=== PATIENT | male | born 1965 | race Hispanic/Latino ===

== ENCOUNTER 2023-05-13 16:23 | Inpatient (IN) | payer OTHER ==
[~2023-05-13 16:23] MED LIST: Iopamidol-370 76% 500 ML MDV (1 ML CHARGE) ONE
[2023-05-13 16:51] LABS: #Eosinphils 0.1 thou/uL (0.0-0.7); #Monocytes 0.5 thou/uL (0.11-0.59); #Neutrophils 5.8 thou/uL (1.40-6.50); %Basophils 0.3 % (0.0-1.0); %Eosinophils 1.1 % (0.0-10.0); %Monocytes 6.5 % (0.0-10.0); %Neutrophils 72.5 % (42.0-75.0); Hematocrit 49.7 % (42.0-52.0); Hemoglobin 16.9 g/dL (14.0-18.0); Mean Corpuscular Hemoglobin 29.7 pg (27.0-31.0); Mean Corpuscular Volume 87.3 fl (78.0-98.0); Mean Platelet Volume 11.3 fL (7.4-10.4); Platelet Count 177 10x3/uL (130-400); RBC Distribution Width 13.6 % (11.5-14.5); Red Blood Cell (RBC) Count 5.69 mill/uL (4.70-6.10); White Blood Cell (WBC) Count 7.9 10x3/uL (4.8-10.8)
[2023-05-13 17:12] LABS: Bacteria/HPF None Seen HPF (None Seen); Bilirubin Negative (Negative); Blood, Urine Negative (Negative); CAUTI Indications for Culture Fever or rigors; Clarity Clear (Clear); Glucose, Urine (Dipstick) Normal (Negative); Ketone, Urine Negative (Negative); Leukocyte 75 Leu/uL (Negative); Nitrite Negative (Negative); Protein, Urine (Dipstick) 30 mg/dL (Neg-Trace); RBC/HPF 0-3 HPF (0-3); Specific Gravity, Urine 1.026 (1.002-1.036); Squamous Epithelial None Seen HPF (0-3); Urobilinogen 6 mg/dL (Less than 2); pH, Urine 5.5 (5.0-9.0)
[2023-05-13] MEDS ORDERED: dilTIAZem 25 MG/5 ML VIAL ONE (17:14)
[2023-05-13] MEDS ORDERED: dilTIAZem 125 MG/25 ML SDV ONE (17:15)
[2023-05-13 17:17] LABS: Urine Culture Reflex Yes Yes
[2023-05-13 17:20] LABS: ALT (SGPT) 129 U/L (8-55); AST (SGOT) 74 U/L (5-34); Alkaline Phosphatase 83 U/L (40-110); Anion Gap 17 mmol/L (10-20); BUN (Urea Nitrogen) 21 mg/dL (8.4-25.7); Bilirubin, Total 4.9 mg/dL (0.2-1.2); Calc. Creatinine Clearance 0 mL/min (70-130); Calcium 9.3 mg/dL (7.8-10.44); Carbon Dioxide 24 mmol/L (22-29); Chloride 97 mmol/L (98-107); Estimated GFR 63; Globulin 3.1 g/dL (2.4-3.5); Glucose 256 mg/dL (70-105); Lipase 137 U/L (8-78); Magnesium 2.2 mg/dL (1.6-2.6); Potassium 3.7 mmol/L (3.5-5.1); Protein, Total 7.1 g/dL (6.0-8.3); Sodium 134 mmol/L (136-145)
[2023-05-13] MEDS ORDERED: Aspirin Chewable 81 MG TAB ONE (17:38)
[2023-05-13] MEDS ORDERED: Furosemide 40 MG (4 mL) VIAL ONE (17:38)
[2023-05-13] MEDS ORDERED: Nitroglycerin 2% Ointment 1 INCH/1 GM Packet ONE (17:38)
[2023-05-13 18:31] LABS: Troponin I 0.071 ng/mL (< 0.028)
[2023-05-13] MEDS ORDERED: Enoxaparin 100 MG (1 mL) SYRINGE ONE (21:46)
[2023-05-13 21:48] LABS: Lactic Acid 3.6 mmol/L (0.5-2.2)
[2023-05-13] MEDS ORDERED: Acetaminophen 325 MG TAB PO PRN (23:15)
[2023-05-13] MEDS ORDERED: Dextrose 5% in Water 1,000 ML IV PRN (23:15)
[2023-05-13] MEDS ORDERED: Dextrose 50% Abboject 50 ML SYRINGE SLOW IVP PRN (23:15)
[2023-05-13] MEDS ORDERED: Glucagon 1 MG/ML KIT IM PRN (23:15)
[2023-05-13] MEDS ORDERED: HumaLOG 300 UNITS/3 ML VIAL SC PRN (23:17)
[2023-05-13] MEDS ORDERED: dilTIAZem 125 MG in Sodium Chloride 0.9% 100 ML IVPB SCH (23:30)
[2023-05-14 00:56] LABS: INR-International Normal Ratio 1.5; PTT 32.9 sec (22.9-36.1); Prothrombin Time 18.3 sec (12.0-14.7)
[2023-05-14 01:03] LABS: Troponin I 0.065 ng/mL (< 0.028)
[2023-05-14 01:13] LABS: HBSAg Index 0.21 S/CO (0-0.99); Hep A IgM AB Non-Reactive S/CO (NonReactive); Hep A IgM S/CO 0.13 S/CO (0-0.79); Hep B Surf Ag Non-Reactive S/CO (NonReactive); Hep C IgG Ab Non-Reactive S/CO (NonReactive); Hep C Index 0.13 S/CO (0-0.79); Hepatitis B Core IgM Abs Non-Reactive S/CO (NonReactive)
[2023-05-14 01:18] VITALS: BMI 32.8
[2023-05-14] MEDS ORDERED: dilTIAZem 125 MG in Sodium Chloride 0.9% 100 ML IVPB SCH ×2 (01:45→03:15)
[2023-05-14] MEDS ORDERED: Furosemide 40 MG (4 mL) VIAL SLOW IVP SCH ×2 (02:00→08:45)
[2023-05-14] MEDS ORDERED: Benzonatate 100 MG CAP PO SCH (02:00)
[2023-05-14 02:33] LABS: #Neutrophils 9.2 thou/uL (1.40-6.50); %Basophils 0.2 % (0.0-1.0); %Eosinophils 0.1 % (0.0-10.0); %Monocytes 8.5 % (0.0-10.0); %Neutrophils 82.1 % (42.0-75.0); Hematocrit 45.6 % (42.0-52.0); Hemoglobin 15.4 g/dL (14.0-18.0); Mean Corpuscular HGB CONC 33.8 g/dL (32.0-36.0); Mean Corpuscular Hemoglobin 29.7 pg (27.0-31.0); Mean Platelet Volume 11.1 fL (7.4-10.4); Platelet Count 184 10x3/uL (130-400); RBC Distribution Width 13.6 % (11.5-14.5); Red Blood Cell (RBC) Count 5.18 mill/uL (4.70-6.10); White Blood Cell (WBC) Count 11.2 10x3/uL (4.8-10.8)
[2023-05-14 02:56] LABS: SARS-CoV-2 NAA Rapid Test Not Detected (NotDetected)
[2023-05-14 02:58] LABS: Magnesium 2.1 mg/dL (1.6-2.6)
[2023-05-14 03:02] LABS: Troponin I 0.101 ng/mL (< 0.028)
[2023-05-14 03:05] LABS: Lactic Acid 3.3 mmol/L (0.5-2.2)
[2023-05-14 03:10] LABS: ALT (SGPT) 259 U/L (8-55); AST (SGOT) 249 U/L (5-34); Albumin 3.6 g/dL (3.5-5.0); Alkaline Phosphatase 76 U/L (40-110); Anion Gap 20 mmol/L (10-20); BUN (Urea Nitrogen) 27 mg/dL (8.4-25.7); Bilirubin, Total 3.7 mg/dL (0.2-1.2); Calc. Creatinine Clearance 83 mL/min (70-130); Calcium 8.1 mg/dL (7.8-10.44); Carbon Dioxide 15 mmol/L (22-29); Chloride 100 mmol/L (98-107); Estimated GFR 52; Globulin 2.5 g/dL (2.4-3.5); Glucose 229 mg/dL (70-105); Potassium 3.9 mmol/L (3.5-5.1); Protein, Total 6.1 g/dL (6.0-8.3); Sodium 131 mmol/L (136-145)
[2023-05-14] MEDS: dilTIAZem 125 MG in Sodium Chloride 0.9% 100 ML IVPB SCH ×2 (04:00→22:57)
[2023-05-14] MEDS: HumaLOG 300 UNITS/3 ML VIAL SC PRN ×2 (05:37→12:30)
[2023-05-14 05:52] LABS: Troponin I 0.109 ng/mL (< 0.028)
[2023-05-14] MEDS: Benzonatate 100 MG CAP PO SCH ×2 (08:00→13:59)
[2023-05-14] MEDS: Polyethylene Glycol 3350 17 GM Packet PO SCH (08:00)
[2023-05-14] MEDS ORDERED: Potassium Chloride 20 MEQ TAB PO SCH (08:45)
[2023-05-14] MEDS ORDERED: Atorvastatin Calcium 10 MG TAB PO SCH (09:00)
[2023-05-14] MEDS ORDERED: Enoxaparin 40 MG (0.4 mL) SYRINGE SC SCH (09:00)
[2023-05-14] MEDS ORDERED: FLU VACC QS2023-24(6MOS UP)/PF 60 MCG/0.5 ML SYRINGE IM ONE (09:00)
[2023-05-14] MEDS: Furosemide 100 MG (10 mL) VIAL SLOW IVP SCH (14:00)
[2023-05-14] MEDS ORDERED: Benzocaine/Menthol 1 LOZ LOZ PO PRN (16:19)
[2023-05-14] MEDS: Enoxaparin 120 MG/0.8 ML SYRINGE SC SCH (21:11)
[2023-05-15 03:48] LABS: #Monocytes 0.8 thou/uL (0.11-0.59); #Neutrophils 8.3 thou/uL (1.40-6.50); %Basophils 0.2 % (0.0-1.0); %Eosinophils 0.4 % (0.0-10.0); %Lymphocytes 11.7 % (21.0-51.0); %Monocytes 7.3 % (0.0-10.0); %Neutrophils 79.2 % (42.0-75.0); Hematocrit 44.3 % (42.0-52.0); Hemoglobin 14.9 g/dL (14.0-18.0); Mean Corpuscular HGB CONC 33.6 g/dL (32.0-36.0); Mean Corpuscular Hemoglobin 29.3 pg (27.0-31.0); Mean Corpuscular Volume 87.2 fl (78.0-98.0); Mean Platelet Volume 11.4 fL (7.4-10.4); Platelet Count 167 10x3/uL (130-400); RBC Distribution Width 13.9 % (11.5-14.5); Red Blood Cell (RBC) Count 5.08 mill/uL (4.70-6.10); White Blood Cell (WBC) Count 10.5 10x3/uL (4.8-10.8)
[2023-05-15 04:06] LABS: Lactic Acid 1.7 mmol/L (0.5-2.2)
[2023-05-15 04:12] LABS: ALT (SGPT) 713 U/L (8-55); AST (SGOT) 639 U/L (5-34); Albumin 3.6 g/dL (3.5-5.0); Alkaline Phosphatase 67 U/L (40-110); Anion Gap 18 mmol/L (10-20); BUN (Urea Nitrogen) 31 mg/dL (8.4-25.7); Bilirubin, Total 4.4 mg/dL (0.2-1.2); Calc. Creatinine Clearance 97 mL/min (70-130); Calcium 8.4 mg/dL (7.8-10.44); Carbon Dioxide 20 mmol/L (22-29); Chloride 99 mmol/L (98-107); Estimated GFR 63; Globulin 2.6 g/dL (2.4-3.5); Glucose 143 mg/dL (70-105); Immunoglob - G (Total IgG) 964 mg/dL (540-1822); Immunoglob - M (Total IgM) 79 mg/dL (22-240); Iron 32 ug/dL (65-175); Iron Binding Capacity, Total 261 mcg/dL (261-462); Potassium 3.5 mmol/L (3.5-5.1); Protein, Total 6.2 g/dL (6.0-8.3); Sodium 133 mmol/L (136-145)
[2023-05-15] MEDS: Furosemide 100 MG (10 mL) VIAL SLOW IVP SCH ×2 (05:12→15:56)
[2023-05-15] MEDS ORDERED: Potassium Chloride 20 MEQ TAB PO SCH (07:30)
[2023-05-15 08:36] LABS: Magnesium 2.2 mg/dL (1.6-2.6)
[2023-05-15] MEDS ORDERED: PROPOFOL 20 ML ONE (09:20)
[2023-05-15] MEDS ORDERED: ePHEDrine Sulfate 50 MG/10 ML VIAL ONE (09:21)
[2023-05-15] MEDS ORDERED: PHENYLEPHRINE-NS 100 MCG/ML 10 ML SYRINGE ONE (09:21)
[2023-05-15] MEDS ORDERED: Spironolactone 25 MG TAB PO SCH (10:00)
[2023-05-15] MEDS ORDERED: Digoxin 0.5 MG/2 ML AMP ONE (10:06)
[2023-05-15] MEDS: Enoxaparin 120 MG/0.8 ML SYRINGE SC SCH ×2 (10:43→20:59)
[2023-05-15] MEDS: Polyethylene Glycol 3350 17 GM Packet PO SCH (10:44)
[2023-05-15] MEDS: Sacubitril 24MG/Valsartan 26 MG TAB PO SCH (10:44)
[2023-05-15] MEDS: Digoxin 0.5 MG/2 ML AMP SLOW IVP SCH ×3 (10:50→14:18)
[2023-05-15] MEDS ORDERED: Sacubitril 24MG/Valsartan 26 MG TAB PO SCH (12:00)
[2023-05-16 04:22] LABS: #Eosinphils 0.1 thou/uL (0.0-0.7); #Monocytes 0.7 thou/uL (0.11-0.59); #Neutrophils 5.9 thou/uL (1.40-6.50); %Basophils 0.1 % (0.0-1.0); %Eosinophils 1.6 % (0.0-10.0); %Lymphocytes 12.4 % (21.0-51.0); %Monocytes 8.8 % (0.0-10.0); %Neutrophils 76.6 % (42.0-75.0); Hematocrit 43.2 % (42.0-52.0); Hemoglobin 14.3 g/dL (14.0-18.0); Mean Corpuscular HGB CONC 33.1 g/dL (32.0-36.0); Mean Corpuscular Hemoglobin 29.5 pg (27.0-31.0); Mean Corpuscular Volume 89.3 fl (78.0-98.0); Mean Platelet Volume 11.2 fL (7.4-10.4); Platelet Count 159 10x3/uL (130-400); RBC Distribution Width 13.8 % (11.5-14.5); Red Blood Cell (RBC) Count 4.84 mill/uL (4.70-6.10); White Blood Cell (WBC) Count 7.7 10x3/uL (4.8-10.8)
[2023-05-16 04:46] LABS: ALT (SGPT) 505 U/L (8-55); AST (SGOT) 281 U/L (5-34); Albumin 3.4 g/dL (3.5-5.0); Alkaline Phosphatase 62 U/L (40-110); Anion Gap 14 mmol/L (10-20); BUN (Urea Nitrogen) 25 mg/dL (8.4-25.7); Bilirubin, Total 4.2 mg/dL (0.2-1.2); Calc. Creatinine Clearance 151 mL/min (70-130); Calcium 8.1 mg/dL (7.8-10.44); Carbon Dioxide 22 mmol/L (22-29); Chloride 102 mmol/L (98-107); Estimated GFR 102; Globulin 2.4 g/dL (2.4-3.5); Glucose 126 mg/dL (70-105); Magnesium 2.1 mg/dL (1.6-2.6); Potassium 3.5 mmol/L (3.5-5.1); Protein, Total 5.8 g/dL (6.0-8.3); Sodium 134 mmol/L (136-145)
[2023-05-16] MEDS ORDERED: Potassium Chloride 20 MEQ TAB PO SCH (05:45)
[2023-05-16] MEDS: Furosemide 100 MG (10 mL) VIAL SLOW IVP SCH ×2 (05:58→14:56)
[2023-05-16] MEDS: Spironolactone 25 MG TAB PO SCH (08:39)
[2023-05-16] MEDS: Digoxin 0.25 MG TAB PO SCH ×2 (08:39→08:40)
[2023-05-16] MEDS: Enoxaparin 120 MG/0.8 ML SYRINGE SC SCH ×2 (08:40→20:17)
[2023-05-16] MEDS: Polyethylene Glycol 3350 17 GM Packet PO SCH (08:42)
[2023-05-16] MEDS ORDERED: Empagliflozin 10 MG TAB PO SCH (09:30)
[2023-05-16 11:11] LABS: ANA Symphony (Qualitative) Negative (Negative); ANA Symphony (Quantitative) 0.2 Ratio (< 0.7 Negative); EliA Vaculitis New Method **** NEW METHOD ****
[2023-05-16] MEDS ORDERED: Regadenoson 0.4 MG/5 ML SYRINGE ONE (11:21)
[2023-05-16] MEDS: HumaLOG 300 UNITS/3 ML VIAL SC PRN (17:01)
[2023-05-16] MEDS: Sacubitril 24MG/Valsartan 26 MG TAB PO SCH (20:17)
[2023-05-17 06:03] LABS: ALT (SGPT) 452 U/L (8-55); AST (SGOT) 214 U/L (5-34); Albumin 3.3 g/dL (3.5-5.0); Alkaline Phosphatase 62 U/L (40-110); Anion Gap 15 mmol/L (10-20); BUN (Urea Nitrogen) 18 mg/dL (8.4-25.7); Bilirubin, Total 4.3 mg/dL (0.2-1.2); Calc. Creatinine Clearance 138 mL/min (70-130); Calcium 8.1 mg/dL (7.8-10.44); Carbon Dioxide 23 mmol/L (22-29); Chloride 101 mmol/L (98-107); Estimated GFR 102; Globulin 2.6 g/dL (2.4-3.5); Glucose 93 mg/dL (70-105); Magnesium 2.2 mg/dL (1.6-2.6); Potassium 3.4 mmol/L (3.5-5.1); Protein, Total 5.9 g/dL (6.0-8.3); Sodium 136 mmol/L (136-145)
[2023-05-17] MEDS: Furosemide 100 MG (10 mL) VIAL SLOW IVP SCH (06:05)
[2023-05-17] MEDS: Sacubitril 24MG/Valsartan 26 MG TAB PO SCH ×2 (08:50→19:46)
[2023-05-17] MEDS: metFORMIN 500 MG TAB PO SCH (08:50)
[2023-05-17] MEDS: Digoxin 0.25 MG TAB PO SCH (08:51)
[2023-05-17] MEDS: Spironolactone 25 MG TAB PO SCH (08:52)
[2023-05-17] MEDS: Empagliflozin 10 MG TAB PO SCH (08:52)
[2023-05-17] MEDS: Polyethylene Glycol 3350 17 GM Packet PO SCH (08:54)
[2023-05-17] MEDS ORDERED: Enoxaparin 100 MG (1 mL) SYRINGE SC SCH (09:00)
[2023-05-17] MEDS ORDERED: Potassium Chloride 20 MEQ TAB PO SCH ×3 (11:00→17:00)
[2023-05-17] MEDS: Apixaban 5 MG TAB PO SCH (19:46)
[2023-05-18 06:04] LABS: #Eosinphils 0.1 thou/uL (0.0-0.7); #Monocytes 0.7 thou/uL (0.11-0.59); #Neutrophils 3.1 thou/uL (1.40-6.50); %Basophils 0.2 % (0.0-1.0); %Eosinophils 2.8 % (0.0-10.0); %Lymphocytes 22.3 % (21.0-51.0); %Monocytes 13.4 % (0.0-10.0); %Neutrophils 61.1 % (42.0-75.0); Hematocrit 49.7 % (42.0-52.0); Hemoglobin 16.8 g/dL (14.0-18.0); Mean Corpuscular HGB CONC 33.8 g/dL (32.0-36.0); Mean Corpuscular Hemoglobin 29.6 pg (27.0-31.0); Mean Corpuscular Volume 87.5 fl (78.0-98.0); Mean Platelet Volume 10.7 fL (7.4-10.4); Platelet Count 212 10x3/uL (130-400); RBC Distribution Width 13.6 % (11.5-14.5); Red Blood Cell (RBC) Count 5.68 mill/uL (4.70-6.10); White Blood Cell (WBC) Count 5.1 10x3/uL (4.8-10.8)
[2023-05-18 06:09] LABS: ALT (SGPT) 361 U/L (8-55); AST (SGOT) 145 U/L (5-34); Albumin 3.4 g/dL (3.5-5.0); Alkaline Phosphatase 62 U/L (40-110); Anion Gap 13 mmol/L (10-20); BUN (Urea Nitrogen) 21 mg/dL (8.4-25.7); Bilirubin, Total 3.5 mg/dL (0.2-1.2); Calc. Creatinine Clearance 122 mL/min (70-130); Calcium 8.5 mg/dL (7.8-10.44); Carbon Dioxide 21 mmol/L (22-29); Chloride 105 mmol/L (98-107); Estimated GFR 98; Globulin 2.9 g/dL (2.4-3.5); Glucose 113 mg/dL (70-105); Magnesium 2.1 mg/dL (1.6-2.6); Protein, Total 6.3 g/dL (6.0-8.3); Sodium 135 mmol/L (136-145)
[2023-05-18 06:10] LABS: Digoxin 0.44 ng/mL (0.8-2.0)
[2023-05-18] MEDS ORDERED: Furosemide 40 MG TAB PO SCH (07:30)
[2023-05-18] MEDS ORDERED: Potassium Chloride 20 MEQ TAB PO SCH (08:00)
[2023-05-18] MEDS: Apixaban 5 MG TAB PO SCH (08:19)
[2023-05-18] MEDS: Empagliflozin 10 MG TAB PO SCH (08:19)
[2023-05-18] MEDS: Digoxin 0.25 MG TAB PO SCH (08:19)
[2023-05-18] MEDS: Spironolactone 25 MG TAB PO SCH (08:20)
[2023-05-18] MEDS: metFORMIN 500 MG TAB PO SCH (08:20)
[2023-05-18] MEDS: Polyethylene Glycol 3350 17 GM Packet PO SCH (08:20)
[2023-05-18] MEDS ORDERED: Sacubitril 49 MG/Valsartan 51 MG TABLET PO SCH (09:00)
[2023-05-18] MEDS: HumaLOG 300 UNITS/3 ML VIAL SC PRN (12:24)
[2023-05-18 12:28] VITALS: TEMP 98.1
[2023-05-18 13:44] VITALS: BP 106/71
== END 2023-05-18 15:02 | disposition home or self-care (01) | DRG 280 ==
LOC: ERS 16:23 → 2NO 23:15
PROVIDERS: ADMIT Family Medicine; ATTEND Family Medicine
PROC: B245ZZ4 Ultrasonography of Left Heart, Transesophageal (ICD-10-PCS; principal; 2023-05-15)
PROC: 3E033XZ Introduction of Vasopressor into Peripheral Vein, Percutaneous Approach (ICD-10-PCS; 2023-05-15)
PROC: 5A2204Z Restoration of Cardiac Rhythm, Single (ICD-10-PCS; 2023-05-15)
DX: I11.0 Hypertensive heart disease with heart failure (principal); I21.A1 Myocardial infarction type 2; I50.23 Acute on chronic systolic (congestive) heart failure; E87.1 Hypo-osmolality and hyponatremia; I48.19 Other persistent atrial fibrillation; N17.9 Acute kidney failure, unspecified; E87.20 Acidosis, unspecified; D68.9 Coagulation defect, unspecified; I47.29 Other ventricular tachycardia; E78.5 Hyperlipidemia, unspecified; F10.90 Alcohol use, unspecified, uncomplicated; F12.90 Cannabis use, unspecified, uncomplicated; R74.01 Elevation of levels of liver transaminase levels; K59.00 Constipation, unspecified; E11.649 Type 2 diabetes mellitus with hypoglycemia without coma; K74.60 Unspecified cirrhosis of liver; N28.89 Other specified disorders of kidney and ureter; E80.6 Other disorders of bilirubin metabolism; E66.9 Obesity, unspecified; I42.0 Dilated cardiomyopathy; I08.1 Rheumatic disorders of both mitral and tricuspid valves; I70.0 Atherosclerosis of aorta; G47.33 Obstructive sleep apnea (adult) (pediatric); Z98.890 Other specified postprocedural states; Z68.28 Body mass index [BMI] 28.0-28.9, adult; Z11.52 Encounter for screening for COVID-19; Z82.49 Family history of ischemic heart disease and other diseases of the circulatory system; I50.810 Right heart failure, unspecified
CPT/HCPCS: 36415; 36416; 71045; 74177; 78452; 80053; 80074; 80162; 81001; 82103; 82105; 82390; 82728; 83516; 83540; 83550; 83605; 83690; 83735; 83880; 84443; 84484; 85025; 85610; 85730; 86015; 86038; 86225; 87040; 87086; 87804; 92960; 93005; 93010; 93017; 93306; 93312; 96372; 96374; 96375; 97139; A9502; J1160; J1650; J1815; J1940; J2704; J2785; J3490; Q9967; U0002

== ENCOUNTER 2023-12-22 08:02 | Outpatient (CLI) | payer OTHER ==
[2023-12-22 10:42] LABS: #Basophils 0.03 10x3/uL (0.0-0.2); %Basophils 0.4 % (0.0-1.0); %Eosinophils 5.6 % (0.0-10.0); %Lymphocytes 29.1 % (21.0-51.0); %Monocytes 6.6 % (0.0-10.0); %Neutrophils 56.9 % (42.0-75.0); Hematocrit 52.3 % (42.0-52.0); Hemoglobin 17.8 g/dL (14.0-18.0); Mean Corpuscular Hemoglobin 30.3 pg (27.0-31.0); Mean Corpuscular Volume 88.9 fL (78.0-98.0); Platelet Count 219 10x3/uL (130-400); RBC Distribution Width 12.6 % (11.5-14.5); Red Blood Cell (RBC) Count 5.88 mill/uL (4.70-6.10)
[2023-12-22 10:56] LABS: INR-International Normal Ratio 1.1; Prothrombin Time 14.3 sec (12.0-14.7)
[2023-12-22 10:57] LABS: PTT 31.7 sec (22.9-36.1)
[2023-12-22 11:04] LABS: Anion Gap 15 mmol/L (10-20); BUN (Urea Nitrogen) 15 mg/dL (8.4-25.7); Calc. Creatinine Clearance 0 mL/min (70-130); Calcium 9.8 mg/dL (7.8-10.44); Carbon Dioxide 25 mmol/L (22-29); Chloride 104 mmol/L (98-107); Estimated GFR 103; Glucose 129 mg/dL (70-105); Potassium 4.3 mmol/L (3.5-5.1); Sodium 140 mmol/L (136-145)
== END 2023-12-22 08:03 | disposition home or self-care (01) ==
LOC: LABBT 08:02
PROVIDERS: ATTEND Internal Medicine Cardiovascular Disease
DX: Z01.812 Encounter for preprocedural laboratory examination (principal); I48.19 Other persistent atrial fibrillation
CPT/HCPCS: 80048; 85025; 85610; 85730

== ENCOUNTER 2024-03-04 06:13 | Day surgery (SDC) | payer OTHER ==
[2024-03-01 10:30] VITALS: BMI 29.1
[2024-03-04] MEDS ORDERED: PROPOFOL 40 ML ONE ×2 (07:22→08:07)
[2024-03-04] MEDS ORDERED: ePHEDrine Sulfate 50 MG/10 ML VIAL ONE (08:13)
== END 2024-03-04 10:04 | disposition home or self-care (01) ==
LOC: SDC 06:13
PROVIDERS: ATTEND Internal Medicine Cardiovascular Disease
PROC: B24BZZ4 Ultrasonography of Heart with Aorta, Transesophageal (ICD-10-PCS; principal; 2024-03-04)
DX: I48.19 Other persistent atrial fibrillation (principal); I11.0 Hypertensive heart disease with heart failure; I50.20 Unspecified systolic (congestive) heart failure; I42.8 Other cardiomyopathies; E11.9 Type 2 diabetes mellitus without complications; E78.5 Hyperlipidemia, unspecified; Z98.890 Other specified postprocedural states; Z79.84 Long term (current) use of oral hypoglycemic drugs; Z79.01 Long term (current) use of anticoagulants; Z79.899 Other long term (current) drug therapy
CPT/HCPCS: 92960; 93312; J2704